=== PATIENT | female | born 1990 | race Two or more races ===

== ENCOUNTER → 2023-11-30 | Outpatient (CLI) | payer OTHER, SELFPAY ==
[2023-11-30 17:59] LABS: Absolute Lymphocyte Count 2.74 X10^3/uL (0.83-4.51); Absolute Neutrophil Count 2.9 X10^3/uL (2.0-7.7); Basophil# 0.03 X10^3/uL; Basophil% 0.5 % (0-1); Eosinophil# 0.07 X10^3/uL; Eosinophils% 1.1 % (0-5); Hematocrit 34.6 % (40-54); Hemoglobin 11.2 g/dL (13.0-16.5); Lymphocyte # 2.74 X10^3/ul (0.83-4.51); Lymphocyte % 42.7 % (19-41); Mean Corp Hgb Conc 32.4 g/dL (32-36); Mean Corpuscular Hgb 30.4 pg (27.0-32.0); Mean Corpuscular Volume 93.8 fL (80-94); Mean Platelet Vol. 10.7 fl (6.2-12.0); Monocyte# 0.63 X10^3/uL; Monocyte% 9.8 % (0-10); NRBC Flagged by Analyzer 0 % (0-5); Neutrophil # 2.93 X10^3/uL (2.7-7.7); Neutrophil % 45.6 % (47-70); Platelet Count 267 K/mm3 (150-450); RBC Distribution Width CV 11.9 % (11.6-14.6); RBC Distribution Width SD 40.8 fl (35.1-43.9); Red Blood Count 3.69 M/mm3 (4.6-6.2); White Blood Count 6.4 K/mm3 (4.4-11.0)
[2023-11-30 18:17] LABS: Hemoglobin A1c 4.4 % (3.8-5.6)
[2023-11-30 18:46] LABS: ALB/GLOB Ratio 1.1 RATIO (0.9-2.4); AST(SGOT) 16 U/L (15-37); Alanine Aminotransfer ALT/SGPT 18 U/L (16-61); Albumin, Serum 3.8 g/dL (3.2-5.0); Alkaline Phosphatase 22 U/L (45-117); Anion Gap 4 (5-15); BUN 12 mg/dL (7-18); BUN/Creat Ratio 15.5 RATIO (10-20); Calcium,Total 8.9 mg/dL (8.5-10.1); Chloride 107 mmol/L (98-107); Cholesterol 175 mg/dL (200); Creatinine, Serum 0.78 mg/dL (0.70-1.30); EST Glomerular Filtration Rate 122 mL/min (>60); Est Glom Filt Rate - Afr Amer 148 mL/min (>60); Ferritin 15 ng/mL (26-388); Globulin 3.4 g/dL (2.2-4.2); Glucose 97 mg/dL (74-106); High Density Lipoprotein 47 mg/dL; Iron 74 ug/dL (65-175); Iron Binding Capacity,Total 357 ug/dL (250-450); PERCENT IRON SATURATION 20.7 % (15.0-55.0); Potassium 3.6 mmol/L (3.5-5.1); Protein, Total 7.2 g/dL (6.4-8.2); Sodium Level 138 mmol/L (136-145); Thyroid Stim Hormone (TSH) 0.76 uIU/mL (0.358-3.74); Triglycerides 136 mg/dL; Very Low Density Lipoprotein 27 mg/dL (5-40)
[2023-12-02 09:30] LABS: HIV - WCH Non-Reactive (Nonreactive); Hepatitis B Surface Antibody Reactive; Hepatitis B Surface Antigen Non-Reactive (Nonreactive); Hepatitis C Antibody Non-Reactive (Nonreactive); Syphilis Antibodies Non-reactive; Vitamin D,25 Hydroxy 17.3 ng/mL
[2023-12-03 08:12] LABS: Hepatitis B Core Ab Total Positive (Negative)
== END | disposition home or self-care (01) ==
LOC: LAB 12-02 07:05 → LABSPEC 12-02 07:07
DX: Z13.228 Encounter for screening for other metabolic disorders (principal); Z13.0 Encounter for screening for diseases of the blood and blood-forming organs and certain disorders involving the immune mechanism; Z11.59 Encounter for screening for other viral diseases; Z13.1 Encounter for screening for diabetes mellitus; Z11.3 Encounter for screening for infections with a predominantly sexual mode of transmission; Z13.29 Encounter for screening for other suspected endocrine disorder; Z13.21 Encounter for screening for nutritional disorder
CPT/HCPCS: 36415; 80053; 80061; 82306; 82728; 83036; 83540; 83550; 84443; 85025; 86703; 86704; 86706; 86780; 86803; 87340

== ENCOUNTER 2023-12-09 15:16 | Day surgery (SDC) | payer OTHER, SELFPAY ==
[2023-12-09] VITALS (11 sets, daily range): BP systolic 107–130; BP diastolic 58–89; PULSE 64–100; RESP 16; TEMP 36.3–36.7; O2SAT 99–100; BMI 28.8
--- NOTE | 2023-12-09 15:35 | EX.ED.DYSGE1 ---
HPI History of Present Illness Chief Complaint: Abd Pain Detail of Chief Complaint: Ectopic Informant: patient Narrative Narrative: Patient presents from ultrasound secondary to ectopic . She states her last menstrual cycle was November 09. She follows with an CLINICAL SAFETY SPECIALIST in [place] who ordered a pelvic ultrasound. When I spoke with ultrasound they stated that she has a live ectopic in the left adnexa. They were unable to get a hold of the CLINICAL SAFETY SPECIALIST in [place] and sent her to the emergency room for care. Patient denies any vaginal bleeding. She states that she has been having some abdominal pain since her last period. PFSH PFSH Medical History no medical history no medical history Home Medications NK 12/09/23 [History Last Taken Unknown] Allergy/AdvReac Type Severity Reaction Status Date / Time No Known Allergies Allergy Verified 12/09/23 15:17 Surgical History History of Social History Smoking Status: Never smoker ROS ROS ED Constitutional Constitutional ED: Denies chills or fever(s) Eyes Eyes: Denies discharge from eye(s) ENT ENT ED: Denies discharge from eye(s), rhinorrhea or sore throat Cardiovascular Cardiovascular: Denies chest pain or palpitations Respiratory/Chest Respiratory/Chest: Denies cough or dyspnea Gastrointestinal Gastrointestinal: Reports abdominal pain; Denies diarrhea, nausea or vomiting Genitourinary Genitourinary ED: Denies dysuria Musculoskeletal Musculoskeletal: Denies back pain or extremity pain Integumentary Denies Abrasions or rash Neurologic Neurologic: Denies headache(s) or weakness Psychiatric Psychiatric: Denies anxiety or depression Endocrine Endocrinology: Denies polydipsia or polyuria Allergic/Immunologic Allergic/Immunologic ED: Denies lip swelling or urticaria EXAM Physical Exam Const Vital Signs: 12/09/23 15:17 Temperature 97.3 F L Temperature Source Temporal Pulse Rate 90 Respiratory Rate 16 Blood Pressure 123/89 H Blood Pressure Mean 100 Pulse Ox 100 Oxygen Delivery Method Room Air Positive well nourished and well developed General Appearance ED: well developed HEENT Reports moist mucous membranes Eyes EOMs intact bilaterally Chest Wall inspection of chest normal and palpation of chest normal Resp normal respiratory effort and clear to auscultation bilaterally Cardio regular rate and regular rhythm GI non-tender Palpation: soft Extremity normal to inspection Neuro oriented x3 and no sensory deficits noted Motor Exam: strength 5/5 throughout Psych mental status grossly normal MDM MDM MDM Narrative Medical decision making narrative: IV line will be initiated. Patient was advised to remain NPO. Labwork obtained to evaluate for leukocytosis, anemia, and electrolyte derangement. With patient having a live ectopic in the adnexa I will speak with no doc CLINICAL SAFETY SPECIALIST here for definitive care. Dr. Payan has been paged. I spoke with Dr. Payan. She will call in the OR team and be in to see the patient. Discharge Plan Triage Chief Complaint: Abd Pain ED Provider: Tracy Carrillo Dx/Rx/DC Orders Clinical Impression: Ectopic Prescriptions: No Action NK Primary Care Provider: Care Physician,No Primary Referrals: [facility] Doctor,Out of [Non-Staff] - Disposition Disposition: Acute Care [facility]
[2023-12-09] MEDS: 0.9% Normal Saline (1000mL) 1,000 ML 150 ML IV (16:21)
--- NOTE | 2023-12-09 16:23 | NURSING ---
OR here for pt.
--- NOTE | 2023-12-09 16:30 | FAL_PTH ---
PATIENT: ELLIE CANDELARIO LOC: [facility] [place] U#:[id number] AGE/SX: 33/F ROOM: RE12/09/[address]: Dr. Suzanne Payan MD : 1990 BED: DIS: 12/09/2023 SPEC #: [id number] RECD: 12/10/23 08:31 STATUS: REAGAN LEAL #: [id number] BERTRAND: 12/09/23 16:[address]: Suzanne aPyan DEPT: SURGICAL PATHOLOGY RECD BY: Cassidy Montague ENTERED: 12/10/23 08:56 SP TYPE: ECTOPIC OTHR DR: Marie Primary Care Phys Tissues: ECTOPIC PREG Procedures: Surgery Specimen Level IV HEADER OPERATION: Laparoscopic, removal ectopic , left salpingo- oophorectomy PRE-OP DIAGNOSIS: Ectopic TISSUE SUBMITTED: Left fallopian tube and ovary, ectopic MICROSCOPIC DIAGNOSIS Left fallopian tube and ovary, salpingo-oophorectomy: Fallopian tube with chorionic villi, decidualized stroma and trophoblastic cells consistent with tubal . Benign paratubal cyst. Ovary with hemorrhagic corpus luteal cysts. AM/mr 12/11/2023 COMMENT Case has been reviewed in consultation with Dr. Ballesteros who concurs with the above diagnosis. IDC:CIARAN MICROSCOPIC DESCRIPTION Slides are reviewed. GROSS DESCRIPTION Received in fixative is one container labeled with the patient's name and designated Left fallopian tube and ovary, ectopic . The specimen consists of fallopian tube and ovary. The fallopian tube appears to be disrupted and measures 5.0cm in length and up to 1.0cm in diameter. The detached piece of tissue is also noted possible fimbrial end of the fallopian tube measuring 2.5 x 2.0 x 1.0cm. The fimbrial end is also hemorrhagic. A paratubal cyst is also noted adjacent to the fallopian tube measuring 1.0cm in greatest dimension. The soft to cystic ovary weighs 40gm and measures 6.0 x4.0 x 3.5cm. The external surface does not show any papillation and is inked black. Thee large corpus lutea noted measuring 2.0 to 3.0cm in greatest dimension. Chargeback Analyst sections are submitted in 10 cassettes as follows: 1-5- fallopian tube end detached possible fimbrial end, entirely submitted, 6-10- ovary. Sukhdev 12/10/2023 TC:5 CPT: 59463
[2023-12-09 16:41] LABS: Absolute Lymphocyte Count 2.24 X10^3/uL (0.83-4.51); Absolute Neutrophil Count 4.2 X10^3/uL (2.0-7.7); Basophil# 0.02 X10^3/uL; Basophil% 0.3 % (0-1); Eosinophil# 0.06 X10^3/uL; Eosinophils% 0.8 % (0-5); Hematocrit 32.7 % (37-47); Hemoglobin 11.4 g/dL (12.0-15.0); Lymphocyte # 2.24 X10^3/ul (0.83-4.51); Lymphocyte % 29.6 % (19-41); Mean Corp Hgb Conc 34.9 g/dL (32-36); Mean Corpuscular Hgb 31.6 pg (27.0-32.0); Mean Corpuscular Volume 90.6 fL (81-99); Monocyte% 13.2 % (0-10); NRBC Flagged by Analyzer 0 % (0-5); Neutrophil # 4.22 X10^3/uL (2.7-7.7); Neutrophil % 55.7 % (47-70); Platelet Count 275 K/mm3 (150-450); RBC Distribution Width CV 12.4 % (11.6-14.6); RBC Distribution Width SD 40.9 fl (35.1-43.9); Red Blood Count 3.61 M/mm3 (4.2-5.4); White Blood Count 7.6 K/mm3 (4.4-11.0)
--- NOTE | 2023-12-09 16:50 | HP.PCM_ITS ---
History and Physical Date of Admission: 12/09/23 33-year-old 2 para 1 female presents with LMP of 11/09/2023 complaining of some pelvic pain and intermittent spotting. Her primary RN LABOR AND DELIVERY Dr. Ivan ordered a pelvic ultrasound which showed an absence of an intrauterine and a left adnexal with approximately 7-week 5-day crown-rump length. Likely tubal ectopic. Past medical history: Significant for fibroid uterus, denies other medical history. Past surgical history laparotomy for removal of a fibroid from her uterus before any pregnancies, she also had a for her 3-year-old. She reports that her she had a cystotomy and had to wear a catheter for 2 weeks afterwards. Allergies: No known drug allergies Social history: She denies any tobacco alcohol or drug use Medications at home: Folic acid only Physical exam: See vitals Skin warm dry and intact General: Awake, alert, no acute distress abd- soft, minimally tender, nondistended, no rebound or guarding resp- normal inspiratory effort cardiac- pulse regular US reviewed Assessment & Plan Assessment/Plan (1) Ectopic : PLAN: Left ectopic approximately 7 weeks 5 days by crown-rump length. Discussed with the patient and her risk benefits and alternatives to laparoscopic salpingostomy, however discussed with them we will likely be a salpingectomy. We discussed implications for future pregnancies. We discussed postop expectations. She is accepting of blood products if indicated. Consent was signed.
[2023-12-09 16:56] LABS: Anion Gap 5 (5-15); BUN 9 mg/dL (7-18); BUN/Creat Ratio 13.8 RATIO (10-20); Calcium,Total 9.1 mg/dL (8.5-10.1); Chloride 110 mmol/L (98-107); Creatinine, Serum 0.65 mg/dL (0.55-1.02); EST Glomerular Filtration Rate 111 mL/min (>60); Est Glom Filt Rate - Afr Amer 134 mL/min (>60); Estimated Creatinine Clearance 118.57 ml/min; Glucose 76 mg/dL (74-106); Potassium 3.6 mmol/L (3.5-5.1); Sodium Level 138 mmol/L (136-145)
[2023-12-09 17:15] LABS: hCG Titer Quant., Serum 83350 mIU/mL (1-3)
--- NOTE | 2023-12-09 17:24 | PCM.DC ---
Discharge Instructions Diet Discharge Diet: No restrictions Activity Discharge Activity: May Shower Return to work on:: 12/16/23 May resume sexual activity in: 1 week Dressing / Incision Call your doctor if your incision/area has: Sudden Increased Bleeding and Foul Smelling Discharge Call your doctor if you observe: Fever of 101 or Higher Cleanse incision/area with: Soap & Water (Your incisions have skin glue and it can get wet. Leave on until it falls off) Follow Up Care Please Follow Up With: Suzanne Payan MD When: IN my office in 1-2 weeks or as needed. Call [phone] or send a [employer] message Test Results: Test results from this visit will be discussed in further detail at your follow-up appointment, if applicable. Discharge Plan Admission Primary Reason for Your Visit: Laparoscopic removal of left fallopian tube and ectopic Attending Provider: Suzanne Payan Primary Care Provider: Care Physician,No Primary Discharge Orders/Prescriptions Prescriptions: New ibuprofen [ibuprofen] 600 MG tablet 600 mg PO Q6H PRN (Reason: Pain) Qty: 60 1RF oxycodone 5 MG tablet 5 mg PO Q6H PRN PRN (Reason: severe pain) 7 Days Qty: 6 0RF No Action NK Referrals / Follow Up: [facility] Doctor,Out of [Non-Staff] - Disposition Disposition (needs filled in before D/C Order can be placed): Home, Self Care
--- NOTE | 2023-12-09 17:30 | OP.PCM_ITS ---
Problems Associated Problem List Diagnoses (1) Ectopic : Report of Operation Date of Procedure: 12/09/23 Pre-Operative Diagnosis: left fallopian tube ectopic Post-Operative Diagnosis: same + extensive adhesions Surgery/Procedure Performed:: Laparoscopic left salpingoophorectomy and extensive lysis of adhesions Description of Surgical Findings:: Left fallopian tube with large ectopic , extensively adhered to the left ovary. Omentum adhered to the anterior abdominal wall, umbilical hernia area, uterus and both ovaries. Both ovaries adhered somewhat to the uterus. Both ovaries adhered to each other in the posterior cul-de-sac. Adhesions of the uterus to the anterior abdominal wall in the lower uterine segment. Surgeon: Suzanne Payan clinical associate: Louise Rutherford MS3 Type of Anesthesia: General Anesthesiologist: Jay Zhou Special Medications: none Specimen's removed: left fallopian tube, left ovary and ectopic Drains: none Estimated Blood Loss (mL): 100 Fluids Replaced: 800 Description of Procedure: The patient was taken to the operating room where she was prepped and draped in the dorsolithotomy position. A weighted speculum was placed in the vagina and the anterior lip of the cervix was grasped with a tenaculum. The room uterine manipulator was placed and the remainder of the instruments were removed from the vagina. Attention was turned to the abdomen. All port sites were infiltrated with 0.5% Marcaine before skin incisions were made. A 5 mm supraumbilical incision was made. The decision was made to enter here to be above the umbilical hernia. The anterior abdominal wall was tented up with 2 towel clamps while a 5 mm blade less trocar and sleeve were directly inserted. Intraperitoneal placement was confirmed with the laparoscope. The pneumoperitoneum was created and the underlying abdominal contents were intact. The patient was placed in Trendelenburg. Right and left lower quadrant ports were placed under direct visualization lateral to the inferior epigastric vessels. The bowel was swept away and the above findings were noted. I then placed another left upper quadrant port in order to be able to use 1 instrument just to manipulate the omentum and the adhesions. I then spent proximately 16 minutes taking down adhesions around the umbilicus so that I could access the pelvis and adhesions of the omentum to the uterus, the ovaries to the uterus and the ovaries to each other. I was then able to identify the left ureter and then isolate and clamp, seal and transect the infundibulopelvic ligament with the LigaSure device. There was some ongoing bleeding from the ectopic because during manipulation of the ectopic it started to bleed. Decision was made to take the tube and the ovary because the ovary was extensively adhered to the tube and when I tried to separate the two some active bleeding started. I then clamped, sealed and transected the utero-ovarian ligament. Some adhesions of the omentum were taken down both with blunt and sharp dissection. The ovaries had to be transected from each other with the LigaSure device in order to free up the left ovary and tube specimen. Any bleeding was cauterized with the LigaSure device. The supraumbilical incision was extended to allow a 12 mm port to be inserted and then I placed a 10 mm Endo Catch bag through it and brought the specimen out through that port site. The port site had to be extended a little bit to allow passage of the specimen. The fascia in that port site was then closed with 0 Vicryl suture in a running standard fashion. Extensive irrigation was then performed to remove any clots and blood. Again all the pedicles were examined and found to be hemostatic. There was some mild oozing from the remaining right ovary. Some hemoblast was placed over all the operative sites and no active bleeding through the product was noted. The surgery took more than an extra 20 minutes because of the extensive adhesions and lysis of adhesions that had to be performed making the procedure more difficult. The skin incisions were closed with Monocryl suture in a subcuticular fashion and skin glue. Steri-Strips and an OpSite were placed over the larger 12 mm port site. The vaginal instruments were removed and there was no bleeding from the cervix and the vaginal sweep was completed by me. The procedure was performed by me with assistance other than as dictated above. All sponge and needle counts were correct and the patient was taken to the recovery room in stable condition. Grafts/Implants Used: none Procedure Start Time: 17:36 Procedure Stop Time: 18:41 Complications none Admit VTE Documentation VTE Present on Admission: No VTE Mechan Device Prophylaxis: SCD's VTE Pharm Prophylaxis ordered?: No
[2023-12-09] MEDS: Bupivacaine Mpf 0.5% 30 ML VIAL (18:35)
[2023-12-09] MEDS: Acetaminophen 500 MG Tablet 1000 MG PO (20:06)
== END 2023-12-09 21:10 | disposition home or self-care (01) ==
LOC: ED 16:08 → SDC 16:20 → ACINP 16:21
PROVIDERS: Emergency Provider Emergency Medicine; Visit Provider Obstetrics & Gynecology
PROC: 10T24ZZ Resection of Products of Conception, Ectopic, Percutaneous Endoscopic Approach (ICD-10-PCS; CPT 59150; principal; 2023-12-09 16:15)
DX: O00.102 Left tubal pregnancy without intrauterine pregnancy (principal)
CPT/HCPCS: 58661; 00840; 49329; 80048; 84702; 85025; 88305; 99284; J7030; J7120; A4216; J2405

== ENCOUNTER → 2023-12-09 | Outpatient (CLI) | payer OTHER, SELFPAY ==
--- NOTE | 2023-12-09 14:30 | US_ITS ---
STUDY: FIRST TRIMESTER OBSTETRICAL ULTRASOUND REASON FOR EXAM: Female, 33 years old PELVIC PAIN LMP: November 15, 2023. TECHNIQUE: Transabdominal and Transvaginal TECHNICAL QUALITY: Adequate. PRIOR ULTRASOUND: None. FINDINGS: There is an extrauterine (ectopic) gestational sac in the left adnexa. The mean sac diameter (MSD) measures 2.7 cm, indicating an estimated gestational age (EGA) of 7 weeks, 5 days. The gestational sac shape is within normal limits. There is a visualized yolk sac. The yolk sac measures 3 mm. The placenta is non-visualized. There is visualization of a live embryo. The crown-rump length (CRL) measures 1.4 cm, indicating an estimated gestational age (EGA) of 7 weeks, 5 days. There is demonstrated cardiac activity with a heart rate of 165 bpm. The estimated gestation age (EGA) by LMP is 3 weeks, 3 days. The estimated date of delivery (ALONZO) by LMP is August 21, 2024. The estimated gestation age (EGA) by US is 7 weeks, 5 days. The estimated date of delivery (ALONZO) by US is July 22, 2024. The uterus measures 13.9 cm x 8.3 sign by 4.2. There is a 2.9 signed by 2.7 cm by 2.8 cm uterine fibroid. Fluid-filled endometrium measuring 12 mm. The cervix is closed. The right ovary was not visualized. The left ovary measures 4.3 cm x 4 cm x 7.1 cm. 2 adjacent cysts are seen. The larger measures 3.5 cm x 3 cm x 2.7 cm. There is no visualized left adnexal mass or complex lesion. There is minimal fluid in the cul de sac. US/Transvaginal w/Preg US IMPRESSION: Findings in keeping with a live extrauterine gestational sac in the left adnexa in keeping with an ectopic . Electronically Signed: Damon Randhawa MD at 16:11 EDT ,
== END | disposition home or self-care (01) ==
DX: R10.2 Pelvic and perineal pain (principal)
CPT/HCPCS: 76817

== ENCOUNTER 2024-06-30 13:12 | Outpatient (CLI) | payer OTHER, SELFPAY ==
[2024-06-30 14:49] LABS: Absolute Lymphocyte Count 2.82 X10^3/uL (0.83-4.51); Absolute Neutrophil Count 2.1 X10^3/uL (2.0-7.7); Basophil# 0.02 X10^3/uL; Basophil% 0.4 % (0-1); Eosinophils% 1.8 % (0-5); Hematocrit 34.3 % (37-47); Lymphocyte # 2.82 X10^3/ul (0.83-4.51); Lymphocyte % 51.1 % (19-41); Mean Corp Hgb Conc 32.1 g/dL (32-36); Mean Corpuscular Hgb 29.9 pg (27.0-32.0); Mean Corpuscular Volume 93.2 fL (81-99); Mean Platelet Vol. 10.7 fl (6.2-12.0); Monocyte# 0.46 X10^3/uL; Monocyte% 8.3 % (0-10); NRBC Flagged by Analyzer 0 % (0-5); Platelet Count 347 K/mm3 (150-450); RBC Distribution Width SD 41.2 fl (35.1-43.9); Red Blood Count 3.68 M/mm3 (4.2-5.4); White Blood Count 5.5 K/mm3 (4.4-11.0)
[2024-06-30 15:26] LABS: Ferritin 30 ng/mL (8-252); Iron 46 ug/dL (50-170); Iron Binding Capacity,Total 344 ug/dL (250-450); PERCENT IRON SATURATION 13.4 % (15.0-55.0)
[2024-07-07 16:10] LABS: HEP B SURFACE ANTIBODY - REF Reactive (.)
[2024-07-07 18:08] LABS: Hepatitis B Core AB IgM Negative (Negative)
[2024-07-08 05:07] LABS: HEPATITIS B SURFACE AG - REF Negative (Negative)
== END 2024-06-30 23:59 | disposition home or self-care (01) ==
DX: Z00.00 Encounter for general adult medical examination without abnormal findings (principal)
CPT/HCPCS: 36415; 82728; 83540; 83550; 85025; 86705; 86706; 87340

== ENCOUNTER → 2024-11-09 | Outpatient (CLI) | payer OTHER, SELFPAY ==
--- NOTE | 2024-11-09 15:44 | US_ITS ---
PROCEDURE: Pelvic ultrasound, transabdominal and transvaginal. REASON FOR EXAM: Abnormal uterine/vaginal bleeding COMPARISON: None available FINDINGS Included portions of the urinary bladder show no specific abnormality. The uterus is anteverted measuring 10.0 x 5.9 x 5.2 cm. No discrete mass of the cervix. Transvaginal images were obtained to better visualize pelvic structures. The endometrium measures 1 cm in thickness. A peripherally calcified fibroid of the fundus measures up to 3.1 cm. There may be a trace amount of free pelvic fluid. The right ovary is 2.9 x 2.6 x 2.0 cm. The left ovary is 4.9 x 2.6 x 2.1 cm. There appears to be blood flow in both ovaries on Doppler evaluation. Tiny bilateral ovarian follicles. No dominant adnexal lesion. US/Pelvic w/ Transvaginal IMPRESSION: The endometrium measures up to 1 cm in thickness, which can be within normal li mits for a premenopausal woman. There appears to be a peripherally calcified 3.1 cm fibroid of the uterine fund us. Unremarkable ovaries for age. There may be a trace amount of free pelvic fluid . No evidence of ovarian torsion. Reading Location: [facility]
== END | disposition home or self-care (01) ==
LOC: US 15:42
DX: N93.8 Other specified abnormal uterine and vaginal bleeding (principal)
CPT/HCPCS: 76830; 76856

== ENCOUNTER 2025-07-09 10:33 | Inpatient (IN) | payer OTHER, MEDICAID, SELFPAY ==
[2025-07-09] VITALS (18 sets, daily range): BP systolic 82–115; BP diastolic 51–98; PULSE 78–103; RESP 16; TEMP 36.1–36.4; O2SAT 95–100; BMI 39.6
[2025-07-09 11:18] LABS: Hematocrit 33.4 % (37-47); Hemoglobin 11.6 g/dL (12.0-15.0); Immature Granulocytes Count 0.180 X10^3/uL (0.0-0.0); Mean Corp Hgb Conc 34.7 g/dL (32-36); Mean Corpuscular Volume 92.0 fL (81-99); Mean Platelet Vol. 10.6 fl (6.2-12.0); NRBC Flagged by Analyzer 0 % (0-5); Platelet Count 248 K/mm3 (150-450); RBC Distribution Width CV 12.6 % (11.6-14.6); RBC Distribution Width SD 41.7 fl (35.1-43.9); Red Blood Count 3.63 M/mm3 (4.2-5.4); White Blood Count 6.9 K/mm3 (4.4-11.0)
[2025-07-09] MEDS: Lactated Ringers 1,000 ML 999 ML IV (11:28)
[2025-07-09] MEDS: Lactated Ringers 1,000 ML 150 ML IV ×2 (11:59→18:18)
--- NOTE | 2025-07-09 12:22 | HP.PCM.OB_ITS ---
HPI - General General Date of Admission: 07/09/25 Date of Service: 07/09/25 Chief Complaint: repeat HPI Narrative ELLIE CANDELARIO, is a 35 F who presents scheduled repeat Maternal Data Information Final ALONZO: 07/17/25 Gestational age: 38+6 PFSH PFSH Medical History Ectopic Home Medications ?Medication ?Instructions ?Recorded ?Last Taken ?Type NK 12/09/23 Unknown History ibuprofen 600 mg tablet 600 mg PO Q6H PRN Pain #60 T ABLETS 12/09/23 Unknown Rx oxycodone 5 mg tablet 5 mg PO Q6H PRN PRN severe p ain 7 12/09/23 Unknown Rx days #6 TABLETS Allergy/AdvReac Type Severity Reaction Status Date / Time No Known Allergies Allergy Verified 12/09/23 15:17 Surgical History History of Social History Smoking Status: Never smoker History 3 Elective abortions Hx Para 1 Spontaneous abortions Hx # Term Pregnancies Ectopic pregnancies Hx # Pregnancies Multiple births # of living children NST FHR Rate Baby A Baseline: 130 NST Reactive:: Yes ROS Constitutional Constitutional: Denies fatigue, fever(s) or malaise Eyes Eyes: Denies change in vision ENT HEENT: Denies dizziness or headache(s) Cardiovascular Cardiovascular: Denies chest pain, dyspnea or lightheadedness Respiratory/Chest Respiratory/Chest: Denies cough or dyspnea Gastrointestinal Gastrointestinal: Denies change in bowel habits Genitourinary Genitourinary: Denies burning urination or genital lesions Integumentary Integumentary: Denies rash Neurologic Neurologic: Denies confusion, dizziness, headache(s), numbness or weakness Vital Signs Vital Signs Vital Signs: 07/09/25 12:09 Temperature 97.6 F L Temperature Source Temporal Pulse Rate 101 H Respiratory Rate 16 Blood Pressure 114/78 Blood Pressure Mean 90 Blood Pressure Source Monitor Blood Pressure Position Semi-Fowlers Blood Pressure Location Right Arm Pulse Ox 100 Oxygen Delivery Method Room Air Weight Weight: 95.2 kg Body Mass Index (BMI) 39.6 Physical Exam Const alert and no apparent distress General Appearance: cooperative HEENT normocephalic Resp normal respiratory effort Cardio regular rate GI soft to palpation GI Narrative: gravid, nontender, appropriate for gestational age Extremity no calf tenderness General Extremity: edema Skin no wounds Rashes: No rashes noted Psych activity/motor behavior normal Labs Labs Labs: Blood Type O POSITIVE Antibody Screen NEGATIVE Hct, (37-47) 33.4 % L Hgb, (12.0-15.0) 11.6 g/dL L Obstetrics Ultrasound Syphilis Total Ab Non-reactive Hep Bs Antigen, (Negative) Negative Hepatitis C Antibody, (Nonreactive) Non-Reactive HIV 1&2 Antibody, (Nonreactive) Non-Reactive Assessment & Plan (1) Previous section: (2) 38 weeks gestation of : PLAN: Plan repeat
[2025-07-09] MEDS: Cefazolin 1 GM/5 ML Vial 2 GM IV (12:35)
[2025-07-09] MEDS: Lactated Ringers 1,000 ML 1000 ML IV (12:35)
[2025-07-09 12:39] LABS: Syphilis Antibodies Nonreactive (Nonreactive)
[2025-07-09] MEDS: Oxytocin 15 Units/NS 250ml 15 UNITS/250 ML IV.SOLN 83 UNITS IV (15:06)
[2025-07-09] MEDS: Ketorolac 30 MG/ML Syringe IV ×2 (15:06→20:41)
--- NOTE | 2025-07-09 20:30 | OP.PCM_ITS ---
Assessment & Plan (1) S/P : Maternal Data Information Final ALONZO: 07/17/25 Gestational age: 38+6 Operative Report (OB) Procedure Details Date of Procedure: 07/09/25 Procedure Start Time: 13:01 Procedure Stop Time: 14:52 Time of Delivery: 13:11 Pre-Operative Diagnosis: Repeat Elective Post-Operative Diagnosis: Same as Pre-operative diagnosis Classification: Scheduled Type of Anesthesia: Spinal Antibiotic Given: Ancef 2 grams IV x1 Drain: Meneses to straight drain Estimated Blood Loss: 800 cc Findings Description of surgery: Patient taken to the OR with spinal and Meneses were placed. She was prepped and draped in the normal sterile fashion. A Pfannenstiel incision was made and carried down to the underlying fascia. The fascia was incised in the midline and extended laterally. The fascia was dissected from the muscle. The muscles divided in the midline. The peritoneum was entered bluntly and extended manually. A bladder blade was placed. The uterine fundus was twisted to the right. The serosal layer was detached from the left side of the uterus. Serosal adhesions from the right side were released allowing for the uterus to be rotated midline. A bladder flap was created. A low transverse incision was made and extended bluntly. The head was elevated to the incision. The shoulders delivered easily. The infant cried upon delivery. The cord was cut and clamped. The placenta was delivered with xavier traction. The uterus was exteriorized and cleared of all clot and debris. Omental adhesions were transected from the fundus. The omentum was suture ligated and hemostatic. The incision was repaired with 1-0 Vicryl x 2. The serosa on the left side was extended to its original position and hemoblast placed between the layers. A 3-0 Vicryl was used to tack it he edge in place. The uterus was returned the abdomen. The gutters cleared of all clots. Hemoblast was placed over the incision.The peritoneum was closed with 2-0 Monocryl. The fascia was closed with 1-0 Vicryl. The subcutaneous tissue was reapproximated with 2-0 Monocryl The skin was closed with 4-0. I performed the major parts of the procedure with Dr Orellana assisting with retractioning. The sponge lap and needle count was correct x 2 Surgical findings: Uterus with omental adhesions to the fundus. Fundus deviated to right. Right tube and ovary completely adherent to posterior uterus. Left tube surgically absent Presentation: Vertex and MAI Amniotic Membrane Rupture Type: Artificial Amniotic Fluid Description: Clear Placental Delivery Description: Spontaneous Placenta Disposition: [facility] Specimen collected: No Cord Vessel Description: 3 Vessels Cord Entanglement: None Infant A gender: Male (1 minute): 9 (5 minute): 9 Delayed Cord Clamping: Yes Research Program Internship journalism professor: Yes Doorperson: Amanda Orellana Tasks completed by cutting table operator first: Closing, Dissecting tissue and Retracting Additional assistant printer floor covering?: No Complications Complications: No
[2025-07-10 00:34] VITALS: RESP 16; O2SAT 100
[2025-07-10] MEDS: 0.9% Saline Lock 10 ML Syringe IV ×2 (02:49→08:42)
[2025-07-10] MEDS: Ketorolac 30 MG/ML Syringe IV ×2 (02:49→08:41)
[2025-07-10 03:09] VITALS: BP 108/69; PULSE 97; RESP 16; TEMP 36.4; O2SAT 99
[2025-07-10 05:50] LABS: Hematocrit 28.1 % (37-47); Hemoglobin 9.6 g/dL (12.0-15.0); Mean Corp Hgb Conc 34.2 g/dL (32-36); Mean Corpuscular Volume 94.0 fL (81-99); Mean Platelet Vol. 10.2 fl (6.2-12.0); Platelet Count 209 K/mm3 (150-450); RBC Distribution Width CV 12.6 % (11.6-14.6); RBC Distribution Width SD 43.3 fl (35.1-43.9); Red Blood Count 2.99 M/mm3 (4.2-5.4); White Blood Count 14.0 K/mm3 (4.4-11.0)
[2025-07-10 08:26] VITALS: BP 101/67; PULSE 102; RESP 18; TEMP 36.4; O2SAT 100
[2025-07-10] MEDS: Senna/Docusate Sodium 1 Tablet PO (08:42)
--- NOTE | 2025-07-10 08:54 | PCM.PN.OB ---
Subjective Subjective Doing well. Ambulating and voiding without difficulty. Mild lochia. Breast feeding. Pain controlled Objective Data Objective Data Vital Signs: Vital Signs Temp Pulse Resp BP Pulse Ox O2 Del Method 97.6 F L 102 H 18 101/67 100 Room Air 07/10/25 08:26 07/10/25 08:26 07/10/25 08:26 07/10/25 08:26 07/10/25 08:26 07/10/25 08:26 Oxygen Delivery Method Room Air Weight: 95.2 kg Body Mass Index (BMI) 39.6 Intake & Output: Intake and Output for Last 24 Hours 07/08/25 07/09/25 07/10/25 23:59 23:59 23:59 Intake Total 4824.25 / 4824.25 Output Total 2500 / 2500 900 / 900 Balance 2324.25 / 2324.25 -900 / -900 Lab / Micro Data 07/10/25 05:40 Labs: Laboratory Results - last 24 hr 07/09/25 11:00: WBC 6.9, RBC 3.63 L, Hgb 11.6 L, Hct 33.4 L, MCV 92.0, MCH 32.0, MCHC 34.7, RDW Std Deviation 41.7, RDW Coeff of Rj 12.6, Plt Count 248, MPV 10.6, Immature Gran % (Auto) 2.600 H, Neut % (Auto) 59.7, Lymph % (Auto) 23.1, [place] % (Auto) 13.3 H, Eos % (Auto) 0.7, Baso % (Auto) 0.6, Absolute Neuts (auto) 4.2, Absolute Lymphs (auto) 1.60, Nucleated RBC % 0, Syphilis Total Ab Nonreactive, Blood Type O POSITIVE, Antibody Screen NEGATIVE 07/10/25 05:40: WBC 14.0 H, RBC 2.99 L, Hgb 9.6 L, Hct 28.1 L, MCV 94.0, MCH 32.1 H, MCHC 34.2, RDW Std Deviation 43.3, RDW Coeff of Rj 12.6, Plt Count 209, MPV 10.2 ROS Constitutional Constitutional: Denies headache(s) Cardiovascular Cardiovascular: Denies chest pain or dyspnea Gastrointestinal Gastrointestinal: Denies nausea or vomiting Genitourinary Genitourinary: Denies dysuria Physical Exam Const alert General Appearance: cooperative Eyes PERRL and EOMs intact bilaterally Resp normal respiratory effort GI soft to palpation and non-tender GI Narrative: soft, moderate distention, fundus firm, appropriately tender. Abdominal bandage clean dry and intact Uterus Palpation: uterus fundus firm ( below umbilicus) Extremity normal to inspection and full ROM Neuro oriented x3 and CN's II-XII intact bilaterally Psych mental status grossly normal Assessment & Plan (1) S/P : PLAN: Plan possible discharge today
[2025-07-10 11:45] VITALS: BP 108/75; PULSE 102; RESP 16; TEMP 36.6; O2SAT 99
--- NOTE | 2025-07-10 15:14 | PCM.DC.SUM ---
Providers Date of Admission: 07/09/25 Date of Discharge: 07/10/25 Primary Care Physician: MG GREEN Reason For Visit: REPEAT C SECTION Diagnosis Discharge Diagnosis (1) S/P : Status: Acute Code(s): Z98.891 - History of uterine scar from previous surgery Plan possible discharge today Medications at Discharge Home Medications ibuprofen 600 mg tablet 600 mg PO Q6H PRN Pain #60 TABLETS 12/09/23 Hospital Course Operations section Procedures None Summary of Care Provided Minutes Spent on Discharge: 20 Hospital Course: Scheduled repeat . Uncomplicated course Physical Exam Const alert General Appearance: cooperative GI GI Narrative: soft, moderate distention, fundus firm, appropriately tender. Abdominal bandage clean dry and intact Weight / BMI Weight Weight: 95.2 kg Body Mass Index (BMI) 39.6 ABG / Lab / Microbiology Data 07/10/25 05:40 Laboratory: Laboratory Results - last 24 hr 07/10/25 05:40: WBC 14.0 H, RBC 2.99 L, Hgb 9.6 L, Hct 28.1 L, MCV 94.0, MCH 32.1 H, MCHC 34.2, RDW Std Deviation 43.3, RDW Coeff of Rj 12.6, Plt Count 209, MPV 10.2 D/C Instructions May resume sexual activity in: 4-6 weeks Lifting Restrictions: 20 pounds Additional Activity Instructions: Nothing in the vagina for 4-6 weeks. You may return to work/school in 6 weeks. Call your doctor if your incision/area has: Continuous Slow Oozing, Sudden Increased Bleeding, Increased Pain/ Swelling, Increased Redness and Foul Smelling Discharge Call your doctor if you observe: Fever of 101 or Higher and Using more than 1 pad per hour (for 2 hours) Suture Line Care: Avoid Pulling/Pushing and Avoid Pinching/Bending Cleanse incision/area with: Keep Dressing Clean & Dry DC O2, CPAP, BIPAP Needs Home O2 Discharge instructions: No Please Follow Up With: Suzanne Payan MD When: Call to make an appointment for an incision check in 1-2 [phone]. You will need a post check in 6 weeks. Meaningful Use Info Meaningful Use Meaningful Use Diagnoses (Choose all that apply): None applicable Discharge Plan Admission Admit Date/Time: 07/09/25 10:33 Primary Reason for Your Visit: repeat Attending Provider: Tracy Duran Primary Care Provider: MG GREEN Instructions Patient Instructions: After a Delivery (WP) Discharge Orders/Prescriptions Prescriptions: Continued ibuprofen 600 MG tablet 600 mg PO Q6H PRN (Reason: Pain) Qty: 60 1RF Discontinued oxycodone 5 MG tablet 5 mg PO Q6H PRN PRN (Reason: severe pain) 7 Days Qty: 6 0RF Referrals / Follow Up: MG GREEN [Other] Disposition Disposition (needs filled in before D/C Order can be placed): Home, Self Care
[2025-07-10 16:15] VITALS: BP 124/78; PULSE 104; RESP 18; TEMP 36.9; O2SAT 100
== END 2025-07-10 18:50 | disposition home or self-care (01) | DRG 788 ==
PROVIDERS: Admitting Provider Obstetrics & Gynecology; Referring Provider Obstetrics & Gynecology; Visit Provider Obstetrics & Gynecology
PROC: 10D00Z1 Extraction of Products of Conception, Low, Open Approach (ICD-10-PCS; CPT 59514; principal; 2025-07-09 11:45)
DX: O34.219 Maternal care for unspecified type scar from previous cesarean delivery (principal); Z37.0 Single live birth; Z3A.38 38 weeks gestation of pregnancy
CPT/HCPCS: 59025; 59050; 85025; 85027; 86780; 86850; 86900; 86901; 99221; A4216; G0378; J2405